=== PATIENT | female | born 1995 | race Caucasian/White ===

== ENCOUNTER 2018-11-17 10:44 | Emergency (ER) | payer BC ==
[~2018-11-17] VITALS: Ht 157.5 cm; Wt 63.6 kg
[2018-11-17] MEDS ORDERED: IBUP-1114 PO (10:48)
[2018-11-17 11:43] LABS: BASO % 0.5 % (0.0-1.0); EOS % 0.5 % (0.0-3.0); HEMOGLOBIN 13.6 g/dl (12.0-15.5); LYMPH # 2.1 10^3/uL (1.5-5.0); LYMPH % 25.3 % (24.0-44.0); MEAN CORPUSCULAR HEMOGLOBIN 33.1 pg (27.0-33.0); MEAN CORPUSCULAR VOLUME 97.3 fl (80.0-96.0); MONO # 0.7 10^3/uL (0.0-0.8); MONO % 8.4 % (0.0-5.0); NEUTROPHILS # 5.5 10^3/uL (1.5-8.5); NEUTROPHILS % 65.1 % (36.0-66.0); PLATELET COUNT, AUTOMATED 365 10^3/uL (150-450); RED BLOOD COUNT 4.11 10^6/uL (4.00-5.40); WHITE BLOOD COUNT 8.4 10^3/uL (4.0-10.0)
[2018-11-17 12:11] LABS: BLOOD UREA NITROGEN 10 MG/DL (7-18); CALCIUM LEVEL 9.3 MG/DL (8.5-10.1); CARBON DIOXIDE LEVEL 26 MEQ/L (21-32); CHLORIDE LEVEL 108 MEQ/L (98-107); CREATININE FOR GFR 0.88 MG/DL (0.55-1.30); GLOMERULAR FILTRATION RATE > 60.0 (>60); GLUCOSE, FASTING 86 MG/DL (70-100); POTASSIUM SERUM 4.2 MEQ/L (3.5-5.1); SODIUM LEVEL 142 MEQ/L (136-145)
--- NOTE | 2018-11-17 12:26 | REP ---
Click ultrasound for left pelvic pain, cyst versus torsion: Comparison is 11/16/2015. The bladder is adequately distended. The uterus is anteverted and normal size measuring 7.3 x 3.2 x 4.7 cm. The endometrium is not thickened measuring 2.8 mm. Right ovary: The right ovary measures 3.8, 72.4 cm. There is no dominant mass or cyst. Left ovary: The left ovary measures 3.1 x 2.1 x 2.5 cm and is normal size. There is no dominant mass or cyst. There is vascular flow in both ovaries. The Doppler resistive index of the parenchymal arteries in the right ovary is 0.54 and the left ovary 0.54. There is no free fluid in the pelvis. Impression: Essentially negative pelvic ultrasound. There are no ovarian masses or cysts. There is vascular flow in both ovaries. Electronically Signed by Boni Henderson MD 11/17/2018 12:18 P
[2018-11-17 12:34] VITALS: BP 134/76
== END 2018-11-17 13:00 | disposition home or self-care (01) ==
LOC: M ED 10:44
DX: S39.011A Strain of muscle, fascia and tendon of abdomen, initial encounter (principal); X58.XXXA Exposure to other specified factors, initial encounter; Y92.89 Other specified places as the place of occurrence of the external cause; Y93.89 Activity, other specified

== ENCOUNTER → 2019-03-10 | Outpatient (CLI) | payer OTHER ==
[~2019-03-10] MED LIST: IBUP-1114 PO
--- NOTE | 2019-03-10 19:46 | REP ---
FIRST TRIMESTER OB ULTRASOUND: 03/10/2019. Clinical history: Supervision of first trimester. Findings: Transabdominal images with the bladder filled shows a gestational sac in the body and fundus of the uterus. Yolk sac is visible and a pole which has a crown-rump length of 1.4 cm corresponding to 7 weeks 5 days. This would give an EDC of 10/22/2019. The heart activity noted at 157. No subchorionic hemorrhage. No adnexal mass or free fluid is noted on either side. Impression: 1. Single intrauterine gestational sac with a pole and crown-rump length consistent with 7 weeks 5 days giving EDC 10/22/2019. Heart rate 157. 2. No subchorionic bleed, adnexal mass or pelvic free fluid. Electronically Signed by Joby Bejarano MD 03/10/2019 08:28 P
== END ==
LOC: M RAD 17:15
PROVIDERS: ATTEND Physician Assistant
DX: Z32.01 Encounter for pregnancy test, result positive (principal); Z36.87 Encounter for antenatal screening for uncertain dates; Z3A.01 Less than 8 weeks gestation of pregnancy

== ENCOUNTER → 2019-04-15 | Outpatient (REF) | payer OTHER ==
[2019-04-15 13:25] LABS: HEMATOCRIT 36.1 % (36.0-47.0); HEMOGLOBIN 12.6 g/dl (12.0-15.5); MEAN CORPUSCULAR HEMOGLOBIN 33.3 pg (27.0-33.0); MEAN CORPUSCULAR HGB CONC 34.9 g/dl (32.0-36.5); MEAN CORPUSCULAR VOLUME 95.5 fl (80.0-96.0); PLATELET COUNT, AUTOMATED 316 10^3/uL (150-450); RED BLOOD COUNT 3.78 10^6/uL (4.00-5.40); WHITE BLOOD COUNT 4.8 10^3/uL (4.0-10.0)
[2019-04-16 10:26] LABS: HEPATITIS C VIRUS ABY INDEX < 0.0 INDEX (<0.8); HIV 1&2 SCREEN CENTAUR NEGATIVE (NEGATIVE); RUBELLA IgG QUALITATIVE IMMUNE (IMMUNE)
== END ==
LOC: M LAB REF 12:38
PROVIDERS: ATTEND Obstetrics & Gynecology
DX: Z34.81 Encounter for supervision of other normal pregnancy, first trimester (principal); Z36.89 Encounter for other specified antenatal screening

== ENCOUNTER → 2019-05-19 | Outpatient (REF) | payer OTHER | LOC: M LAB REF 12:05 | PROVIDERS: ATTEND Obstetrics & Gynecology | DX: Z34.02 Encounter for supervision of normal first pregnancy, second trimester (principal); Z36.89 Encounter for other specified antenatal screening ==

== ENCOUNTER → 2019-06-04 | Outpatient (CLI) | payer OTHER, MEDICAID ==
--- NOTE | 2019-06-04 15:15 | REP ---
OB ULTRASOUND: Real-time sonographic evaluation of gravid uterus performed. There is a single living intrauterine gestation. The estimated gestational age is 20 weeks 0 days based on the first ultrasound, EDC 10/22/2019. Today's measurements indicate appropriate growth. BPD 43 mm = 19 weeks 1 day, 29th percentile HC 169 mm = 19 weeks 4 days, 38th percentile AC 144 mm = 19 weeks 5 days, 45th percentile Femur length 33 mm = 20 weeks 2 days, 60th percentile HC/AC ratio 1.18, within normal range. Estimated weight 318 grams, 45th percentile. Cervix is closed and measures 4.2 cm in length. heart rate 144 beats per minute. SEEN/GROSSLY UNREMARKABLE Lateral ventricles Yes Posterior fossa Yes Upper lip Yes Four-chamber heart Yes LVOT Yes RVOT Yes Stomach Yes Cord insertion Yes Three vessel cord Yes Kidneys Yes Bladder Yes Spine Yes position is vertex. Placenta is posterior and grade 1 with no previa or abruption. Linear soft tissue along the placental edge. This is compatible with a circumvallate placenta. Amniotic fluid is within normal limits.
== END ==
LOC: M WHC 07:45
PROVIDERS: ATTEND Obstetrics & Gynecology
DX: O43.112 Circumvallate placenta, second trimester (principal); Z36.89 Encounter for other specified antenatal screening; Z3A.19 19 weeks gestation of pregnancy

== ENCOUNTER → 2019-07-27 | Outpatient (CLI) | payer OTHER, MEDICAID ==
[2019-07-27 13:51] LABS: HEMATOCRIT 34.4 % (36.0-47.0); HEMOGLOBIN 11.6 g/dl (12.0-15.5); MEAN CORPUSCULAR HEMOGLOBIN 33.7 pg (27.0-33.0); MEAN CORPUSCULAR HGB CONC 33.7 g/dl (32.0-36.5); PLATELET COUNT, AUTOMATED 344 10^3/uL (150-450); RED BLOOD COUNT 3.44 10^6/uL (4.00-5.40)
[2019-07-28 10:10] LABS: WHITE BLOOD COUNT 10.4 10^3/uL (4.0-10.0)
== END ==
LOC: M LAB 11:10
PROVIDERS: ATTEND Obstetrics & Gynecology
DX: Z36.89 Encounter for other specified antenatal screening (principal)

== ENCOUNTER → 2019-10-25 | Outpatient (CLI) | payer OTHER, MEDICAID ==
--- NOTE | 2019-10-25 16:48 | REPVR ---
PROCEDURE INFORMATION: Exam: US Biophysical Profile Without Non-Stress Test Exam date and time: 10/25/2019 4:28 PM Age: 23 years old Clinical indication: Abnormal findings; Abnormal radiological screening; Third; ; Additional info: tachycardia TECHNIQUE: Imaging protocol: US biophysical profile without non-stress testing. COMPARISON: OBS COMPLETE US 06/04/2019 8:18 AM FINDINGS: BIOPHYSICAL PROFILE: Breathin/2 Gross body movements: 2/2 tone: 2/2 Qualitative amniotic fluid: 2/2 Biophysical Profile Score: 8/8 IMPRESSION: Biophysical profile score is 8 out of 8. Electronically signed by: Georges Welch On 10/25/2019 16:47:57 PM
== END ==
LOC: M RAD 16:03
PROVIDERS: ATTEND Obstetrics & Gynecology
DX: Z34.03 Encounter for supervision of normal first pregnancy, third trimester (principal); Z3A.00 Weeks of gestation of pregnancy not specified

== ENCOUNTER → 2022-08-27 | Outpatient (REF) | payer OTHER | LOC: M LAB REF 17:12 | PROVIDERS: ATTEND Pediatrics | DX: E55.9 Vitamin D deficiency, unspecified (principal) ==

== ENCOUNTER 2022-12-04 17:55 | Emergency (ER) | payer OTHER ==
[~2022-12-04] VITALS: Ht 160 cm; Wt 80.8 kg
[2022-12-04] MEDS ORDERED: ACE65ERTAB PO (18:00)
[2022-12-04 19:05] LABS: BASO % 0.4 % (0.0-1.0); EOS # 0.1 10^3/uL (0.0-0.5); EOS % 0.8 % (0.0-3.0); HEMATOCRIT 36.9 % (36.0-47.0); HEMOGLOBIN 12.7 g/dl (12.0-15.5); LYMPH # 1.8 10^3/uL (1.5-5.0); LYMPH % 21.8 % (24.0-44.0); MEAN CORPUSCULAR HEMOGLOBIN 31.6 pg (27.0-33.0); MEAN CORPUSCULAR HGB CONC 34.4 g/dl (32.0-36.5); MEAN CORPUSCULAR VOLUME 91.8 fl (80.0-96.0); MONO # 0.9 10^3/uL (0.0-0.8); MONO % 10.8 % (2.0-8.0); NEUTROPHILS # 5.5 10^3/uL (1.5-8.5); NEUTROPHILS % 66.1 % (36.0-66.0); PLATELET COUNT, AUTOMATED 368 10^3/uL (150-450); RED BLOOD COUNT 4.02 10^6/uL (4.00-5.40); WHITE BLOOD COUNT 8.3 10^3/uL (4.0-10.0)
[2022-12-04 19:24] LABS: LIPASE 28 U/L (12-53)
[2022-12-04 19:26] LABS: ALBUMIN 3.8 G/DL (3.2-5.2); ALKALINE PHOSPHATASE 45 U/L (46-116); ALT/SGPT 15 U/L (7.0-40); AST/SGOT 15 U/L (<34); BILIRUBIN,DIRECT < 0.1 MG/DL (<0.4); BILIRUBIN,TOTAL 0.3 MG/DL (0.3-1.2); BLOOD UREA NITROGEN 11 MG/DL (9-23); CARBON DIOXIDE LEVEL 26 MMOL/L (20-31); CHLORIDE LEVEL 106 MMOL/L (98-107); CREATININE FOR GFR 0.72 MG/DL (0.55-1.30); GLOMERULAR FILTRATION RATE > 60.0 (>60); GLUCOSE, FASTING 114 MG/DL (60-100); SODIUM LEVEL 139 MMOL/L (136-145); TOTAL PROTEIN 6.8 G/DL (5.7-8.2)
[2022-12-04 19:38] LABS: HCG, SERUM QUALITATIVE NEGATIVE (NEGATIVE)
[2022-12-04] MEDS ORDERED: KETOROLAC 30 MG/ML 1ML VIAL IV ONE (22:25)
[2022-12-04] MEDS ORDERED: ISOVUE-370 76% 100ML VIAL As Ordered ONE (22:41)
[2022-12-05] MEDS ORDERED: MIRA3350 PO (01:27)
[2022-12-05 01:36] VITALS: BP 122/72; TEMP 98.1; O2SAT 99
== END 2022-12-05 01:38 | disposition home or self-care (01) ==
LOC: M ED 17:55
DX: K59.00 Constipation, unspecified (principal); Z79.1 Long term (current) use of non-steroidal anti-inflammatories (NSAID); Z79.899 Other long term (current) drug therapy
CPT/HCPCS: 74177; 76830; 76856; 80048; 80076; 81001; 83690; 84703; 85025; 93976; 96374; 99284; J1885; Q9967

== ENCOUNTER → 2023-06-11 | Outpatient (REF) | payer BC ==
[~2023-06-11] MED LIST changes: +ACE65ERTAB PO; +MIRA3350 PO
[2023-06-11 17:40] LABS: HEPATITIS B SURFACE ANTIGEN NEGATIVE (NEGATIVE)
[2023-06-11 17:43] LABS: HEMATOCRIT 40.3 % (36.0-47.0); HEMOGLOBIN 13.8 g/dl (12.0-15.5); MEAN CORPUSCULAR HEMOGLOBIN 31.8 pg (27.0-33.0); MEAN CORPUSCULAR HGB CONC 34.2 g/dl (32.0-36.5); MEAN CORPUSCULAR VOLUME 92.9 fl (80.0-96.0); PLATELET COUNT, AUTOMATED 397 10^3/uL (150-450); RED BLOOD COUNT 4.34 10^6/uL (4.00-5.40); WHITE BLOOD COUNT 6.5 10^3/uL (4.0-10.0)
[2023-06-11 17:53] LABS: HIV 1&2 SCREEN NEGATIVE (NEGATIVE)
[2023-06-11 18:01] LABS: HCG, SERUM QUANTITATIVE 5663.4 MIU/ML (<4.2); HEPATITIS C VIRUS ABY INDEX < 0.02 INDEX (<0.8)
== END ==
LOC: M LAB REF 16:22
PROVIDERS: ATTEND Obstetrics & Gynecology
DX: O36.80X0 Pregnancy with inconclusive fetal viability, not applicable or unspecified (principal); Z32.01 Encounter for pregnancy test, result positive; Z3A.00 Weeks of gestation of pregnancy not specified

== ENCOUNTER → 2023-06-24 | Outpatient (CLI) | payer BC | LOC: M RAD 09:55 | PROVIDERS: ATTEND Obstetrics & Gynecology | DX: O36.80X0 Pregnancy with inconclusive fetal viability, not applicable or unspecified (principal); Z32.01 Encounter for pregnancy test, result positive; Z3A.01 Less than 8 weeks gestation of pregnancy ==

== ENCOUNTER → 2023-10-06 | Outpatient (CLI) | payer BC | LOC: M RAD 10:08 | PROVIDERS: ATTEND Obstetrics & Gynecology | DX: Z34.82 Encounter for supervision of other normal pregnancy, second trimester (principal); Z3A.22 22 weeks gestation of pregnancy ==

== ENCOUNTER → 2023-10-24 | Outpatient (CLI) | payer BC | LOC: M WHC 09:29 | PROVIDERS: ATTEND Nurse Practitioner Women's Health | DX: Z34.82 Encounter for supervision of other normal pregnancy, second trimester (principal) ==

== ENCOUNTER → 2023-11-12 | Outpatient (CLI) | payer BC ==
[2023-11-12 13:29] LABS: HEMATOCRIT 33.4 % (36.0-47.0); HEMOGLOBIN 11.1 g/dl (12.0-15.5); MEAN CORPUSCULAR HEMOGLOBIN 32.4 pg (27.0-33.0); MEAN CORPUSCULAR HGB CONC 33.2 g/dl (32.0-36.5); MEAN CORPUSCULAR VOLUME 97.4 fl (80.0-96.0); PLATELET COUNT, AUTOMATED 388 10^3/uL (150-450); RED BLOOD COUNT 3.43 10^6/uL (4.00-5.40); WHITE BLOOD COUNT 9.3 10^3/uL (4.0-10.0)
[2023-11-12 13:51] LABS: GLUCOSE CHALLENGE TEST 1 HOUR 127 MG/DL (LESS THAN 140)
[2023-11-12 14:20] LABS: HIV 1&2 SCREEN NEGATIVE (NEGATIVE)
[2023-11-12 14:28] LABS: HEPATITIS C VIRUS ABY INDEX < 0.02 INDEX (<0.8)
== END ==
LOC: M PLALAB 08:56
PROVIDERS: ATTEND Nurse Practitioner Women's Health
DX: Z34.82 Encounter for supervision of other normal pregnancy, second trimester (principal)

== ENCOUNTER → 2024-01-15 | Outpatient (REF) | payer BC | LOC: M PLALAB 15:23 | PROVIDERS: ATTEND Nurse Practitioner Family | DX: Z36.85 Encounter for antenatal screening for Streptococcus B (principal); Z3A.36 36 weeks gestation of pregnancy ==

== ENCOUNTER 2024-02-27 12:16 | Inpatient (IN) | payer BC ==
[~2024-02-27] VITALS: Ht 157.5 cm; Wt 75.2 kg
[~2024-02-27 12:16] MED LIST changes: +PRENTAB9 PO; +VITA100T59 PO
[2024-02-27 14:15] LABS: BASO % 0.2 % (0.0-1.0); EOS % 0.1 % (0.0-3.0); HEMATOCRIT 36.8 % (36.0-47.0); HEMOGLOBIN 12.4 g/dl (12.0-15.5); LYMPH # 0.6 10^3/uL (1.5-5.0); LYMPH % 7.2 % (24.0-44.0); MEAN CORPUSCULAR HEMOGLOBIN 32.2 pg (27.0-33.0); MEAN CORPUSCULAR HGB CONC 33.7 g/dl (32.0-36.5); MEAN CORPUSCULAR VOLUME 95.6 fl (80.0-96.0); MONO # 0.3 10^3/uL (0.0-0.8); NEUTROPHILS # 7.5 10^3/uL (1.5-8.5); PLATELET COUNT, AUTOMATED 416 10^3/uL (150-450); RED BLOOD COUNT 3.85 10^6/uL (4.00-5.40); WHITE BLOOD COUNT 8.5 10^3/uL (4.0-10.0)
[2024-02-27 14:41] LABS: ALBUMIN 3.3 G/DL (3.2-5.2); ALKALINE PHOSPHATASE 106 U/L (35-104); ALT/SGPT 28 U/L (7.0-40); AST/SGOT 11 U/L (<34); BILIRUBIN,TOTAL 0.6 MG/DL (0.3-1.2); BLOOD UREA NITROGEN 14 MG/DL (9-23); CALCIUM LEVEL 8.6 MG/DL (8.5-10.1); CARBON DIOXIDE LEVEL 24 MMOL/L (20-31); CHLORIDE LEVEL 106 MMOL/L (98-107); CREATININE FOR GFR 0.87 MG/DL (0.55-1.30); GLOMERULAR FILTRATION RATE > 60.0 (>60); GLUCOSE, FASTING 81 MG/DL (60-100); POTASSIUM SERUM 4.1 MMOL/L (3.5-5.1); SODIUM LEVEL 140 MMOL/L (136-145); TOTAL PROTEIN 6.7 G/DL (5.7-8.2)
[2024-02-27 14:52] LABS: KETONE, URINE AUTO RFX TRACE mg/dL (NEGATIVE); MUCUS, URINE RFX MODERATE (NEGATIVE); NITRITE, URINE AUTO RFX NEGATIVE (NEGATIVE); RBC, URINE AUTO RFX 2 /HPF (0-3); SQUAM EPITHELIAL CELL UR AURFX 1 /HPF (0-6)
[2024-02-27 14:54] LABS: LEUKOCYTE ESTERASE UR AUTO RFX 2+ (NEGATIVE); WBC, URINE AUTO RFX 18 /HPF (0-3)
[2024-02-27] MEDS: DOXYCYCLINE HYCLATE 100 MG in DEXTROSE 5% (D5W) MINI-BAG PLU 100 ML IV ONE (17:10)
[2024-02-27] MEDS: ACETAMINOPHEN *IV* 1,000 MG in IV 1 EA IV ONE (17:10)
[2024-02-27] MEDS ORDERED: VITA500C24 PO (17:21)
[2024-02-27] MEDS ORDERED: HOME MED LIST COMPLETE! XX SCH (17:25)
[2024-02-27] MEDS: NS (Normal Saline) 0.9% 1,000 ML IV ONE (17:30)
[2024-02-27] MEDS: PIPERACILLIN/TAZOBACTAM SOD 3.375 GM in DEXTROSE 5% (D5W) ADV/MINI-BAG 50 ML IV SCH (18:00)
[2024-02-27 18:40] VITALS: BP 121/89; O2SAT 97
[2024-02-27] MEDS ORDERED: SLF 3 ML SYR IV PRN (18:40)
[2024-02-27 22:00] VITALS: BP 106/59; TEMP 98.7; O2SAT 96
[2024-02-27] MEDS: SLF 3 ML SYR IV SCH (22:00)
[2024-02-28] VITALS (7 sets, daily range): BP systolic 99–114; BP diastolic 59–69; TEMP 98.2–105; O2SAT 96–100
[2024-02-28] MEDS: ACETAMINOPHEN 500 MG TAB PO PRN (00:21)
[2024-02-28] MEDS: IBUPROFEN 800 MG TAB PO PRN (00:21)
[2024-02-28 06:19] LABS: HEMATOCRIT 34.2 % (36.0-47.0); HEMOGLOBIN 11.4 g/dl (12.0-15.5); MEAN CORPUSCULAR HEMOGLOBIN 31.8 pg (27.0-33.0); MEAN CORPUSCULAR HGB CONC 33.3 g/dl (32.0-36.5); MEAN CORPUSCULAR VOLUME 95.3 fl (80.0-96.0); PLATELET COUNT, AUTOMATED 355 10^3/uL (150-450); RED BLOOD COUNT 3.59 10^6/uL (4.00-5.40); WHITE BLOOD COUNT 8.5 10^3/uL (4.0-10.0)
[2024-02-29] VITALS: BP 114/67; TEMP 99.2; O2SAT 97
[2024-02-29 00:52] VITALS: BP 114/67; TEMP 99.2; O2SAT 97
[2024-02-29 04:00] VITALS: BP 116/76; TEMP 99.5; O2SAT 97
[2024-02-29 09:58] VITALS: BP_SYST 115; BP_SYST 145; BP_DIAS 65; BP_DIAS 77; TEMP 97.4; TEMP 98.2; O2SAT 96; O2SAT 98
== END 2024-02-29 15:30 | disposition home or self-care (01) | DRG 561 ==
LOC: M ED 12:16 → M ED INP 17:25 → M OBS 18:35
PROVIDERS: ADMIT Advanced Practice Midwife; ATTEND Advanced Practice Midwife
DX: O86.12 Endometritis following delivery (principal); Z87.59 Personal history of other complications of pregnancy, childbirth and the puerperium

== ENCOUNTER → 2024-09-28 | Outpatient (REF) | payer BC ==
[~2024-09-28] MED LIST changes: -ACE65ERTAB PO; +ACET-1593 PO; +VITA500C24 PO
== END ==
LOC: M LAB REF 16:54
PROVIDERS: ATTEND Physician Assistant Medical
DX: B34.9 Viral infection, unspecified (principal)

== ENCOUNTER → 2025-01-05 | Outpatient (CLI) | payer BC ==
[~2025-01-05] MED LIST changes: +ACET-1387 PO; -ACET-1593 PO
== END ==
LOC: M WUC 13:12
PROVIDERS: ATTEND Physician Assistant
DX: R05.9 Cough, unspecified (principal); R06.02 Shortness of breath; J06.9 Acute upper respiratory infection, unspecified